=== PATIENT | male | born 1990 | race Caucasian/White ===

== ENCOUNTER 2017-02-14 16:48 | Emergency (ER) | payer OTHER ==
--- NOTE | 2017-02-14 19:25 | ED CLINICAL REPORT ---
Clinical Report - Physicians/Mid Levels [facility] [address] [place] [address] 02/14/2017 16:49 Patient: RICARDO ALVES Time Seen: 17:11; initial patient contact. Arrived- By private vehicle. Historian- patient. HISTORY OF PRESENT ILLNESS Chief Complaint: Injury to right thigh. The injury happened about 3 days ago. Occurred at home. Injury secondary to other mechansim (none). Patient is experiencing mild pain. Patient denies injury to the head or neck. REVIEW OF SYSTEMS The patient has had swelling. He has had pedal edema but no pain on weight bearing. No weakness, skin laceration, calf pain, chest pain or difficulty breathing. No palpitations. PAST HISTORY ( Seizure Disorder. Back Injury. Back Pain. Edema. Contusion. Obesity. Tetanus Status. Sprain. Hypertension. ADDITIONAL SURGERIES: Leg surgery right from fracture). SOCIAL HISTORY Current every day smoker. Occasional alcohol use. ADDITIONAL NOTES The nursing notes have been reviewed. PHYSICAL EXAM Vital Signs: 02/14/2017 17:19 BP: 120/65. HR: 56. RR: 14. O2 saturation: 100%. Temp: 98.1 F. Pain level now: 09/13. Have been reviewed. Blood pressure normal. Bradycardic. Respiratory rate normal. Temperature normal. Oxygen saturation normal. Appearance: Alert. Oriented X3. No acute distress. CVS: Normal heart rate and rhythm. Heart sounds normal. Respiratory: No respiratory distress. Breath sounds normal. Extremities: Left leg. (Superficial thrombophlebitis to medial calf 3 cm. Mild overlying erythema.). Extremities otherwise negative. Neuro, Vascular and Tendons: Vascular status intact. Sensation intact. Motor intact. Tendon function intact. Gait: Normal gait. PROGRESS AND PROCEDURES Disposition: Discharged home in good condition. Condition: good. CLINICAL IMPRESSION Superficial thrombophlebitis of the right leg. INSTRUCTIONS Your Current Medications: CONTINUE TAKING THE FOLLOWING MEDICATIONS: Keppra Oral : 1750 mg 2x a day. New Seizure Pill (starts with Z)*. Prescription Medications: Diclofenac 50 mg tablets: take 1 tablet orally every 8 hours as needed for pain. Dispense thirty (30). No refill. Follow-up: Follow up with your doctor in about two days. Call for an appointment. (Electronically signed by Pillo Cronin Dr. 02/16/2017 21:49)
--- NOTE | 2017-02-14 19:25 | ED NURSING NOTES ---
Clinical Report - Nurses [facility] [address] [place] [address] 02/14/2017 16:49 Patient: RICARDO ALVES TRIAGE Triage time 17:19. Acuity: LEVEL 3. Chief Complaint: RIGHT LOWER EXTREMITY PAIN, SWELLING and REDNESS. SEPSIS SCREEN: Sepsis Screen. Negative (no infection suspected/documented). --17:31 Denise Pickett R.N. 17:19 02/14/17. BP: 120/65. HR: 56. RR: 14. O2 saturation: 100%. Temp: 98.1 F (oral). Pain level now: 09/13. --17:31 Denise Pickett R.N. Weight: 129.2 kg stated. Height/Length: 73 inches Per Patient. BMI: 37.6. --17:26 Denise Pickett R.N. Medications Keppra Oral 1750 mg , 2x a day. --17:23 Denise Pickett R.N. New Seizure Pill (starts with Z). --17:23 Denise Pickett R.N. Allergies No Known Drug Allergy. --17:23 Denise Pickett R.N. History Arrived by private vehicle. Historian: patient. Accompanied by friend. Primary physician (Gayla Tellez ([facility])). This occurred (about 3 days ago). ( Noticed redness and a rock hard area on his right calf. Called Dr office and they referred him to the ED. Went to in [place] a couple of months ago for vein mapping, needs to call to make an appt for vein stripping.). He has had swelling and redness. 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 SOCIAL HX: Heavy tobacco smoker- 1 pack per day. Occasional alcohol use. No drug use. SELF HARM ASSESSMENT: A self harm assessment was performed. The patient answered "no" to the question "Do you have thoughts of harming or killing yourself?". FALL RISK ASSESSMENT: Fall risk assessment completed. No fall risk identified. NUTRITIONAL RISK ASSESSMENT: The nutritional risk assessment revealed no deficiencies. FUNCTIONAL ASSESSMENT: Functional assessment: no impairments noted. LEARNING NEEDS ASSESSMENT: The learning needs assessment revealed no barriers. ABUSE ASSESSMENT: Abuse assessment: ("yes") The patient was asked "Do you feel safe in your home?". SKIN INTEGRITY ASSESSMENT: Skin integrity risk assessment completed. No skin integrity risk identified. --17:31 Denise Pickett R.N. PROBLEMS: Seizure Disorder. Back Injury. Back Pain. Edema. Contusion. Obesity. Tetanus Status. Sprain. Hypertension. --17:25 Denise Pickett R.N. ADDITIONAL SURGERIES: Leg surgery right from fracture. --17:23 Denise Pickett R.N. Interventions ID band on patient. To room. --17:31 Denise Pickett R.N. PHYSICAL ASSESSMENT Ambulatory to room. Patient gowned. GENERAL / NEURO / PSYCH: Oriented X 4. Alert. Appears in no acute distress. EXTREMITIES: Extremity pulses are within normal limits. Right leg: tenderness and erythema. SKIN: Skin intact. Skin is warm and dry. --17:32 Denise Pickett R.N. NURSING PROGRESS NOTES Patient gowned. Reassurance given. Two patient identifiers checked. Call light placed in reach. Bed placed in lowest position. Brakes of bed on. Patient ready for evaluation- ED physician and BARN WORKER notified. --17:32 Denise Pickett R.N. 17:56 02/14/2017 Site #1 started via IV in the right antecubital space with an 20g angiocath; one attempt. Blood drawn: rainbow set. Labeled in the presence of the patient and sent to the lab. Saline lock flushed with 10 mL saline. --17:56 Denise Pickett R.N. Care transferred and report received (GAGE Murray). --19:07 Terri Fernandez R.N. 19:13 02/14/17. The patient reports no complaints and he is calm. ( Right leg red area upper medial calf with edema noted bilat). GENERAL / NEURO / PSYCH: Denies pain. Alert. Oriented X 4. RESPIRATORY: No respiratory distress. CVS: Capillary refill less than 2 seconds. GI / : Denies nausea. Denies vomiting. EXTREMITIES: Neuro-vascular status intact to the extremities. SKIN: Skin is warm and dry. ( Patient offered a warm blanket, he declined). --19:13 Terri Fernandez R.N. 19:11 02/14/17. BP: 118/67 (large adult cuff) taken on the left arm, while sitting. HR: 127. RR: 18 (regular). O2 saturation: 100% on room air. Temp: 97.8 F (oral). Pain level now: 0/10. --19:13 Terri Fernandez R.N. DISPOSITION / DISCHARGE 19:43 02/14/2017 Site #1 removed upon discharge. Bandaid applied. --19:48 Terri Fernandez R.N. Departure time: 19:47 Feb 14 2017. Condition at departure: unchanged. No learning barriers present. Discharge instructions provided and reviewed with the patient. Reviewed medication(s) side effects, precautions, dosing and course information. Prescription(s) given to the patient. Patient verbalized understanding. Written instructions provided in Japanese. The patient was discharged by the physician. He was discharged home. He left the Emergency Department ambulatory and via private vehicle. Patient driving. --19:48 Terri Fernandez R.N. 19:47 02/14/17. BP: 123/73 (large adult cuff) taken on the left arm, while sitting. HR: 80. RR: 18 (regular). O2 saturation: 100% on room air. Temp: 98 F (oral). Pain level now: 0/10. --19:48 Terri Fernandez R.N. Locked/Released at 02/14/2017 19:49 by Terri Fernandez R.N.
--- NOTE | 2017-02-14 19:25 | ED NURSING NOTES ---
Clinical Report - Nurses [facility] [address] [place] [address] 02/14/2017 16:49 Patient: RICARDO ALVES TRIAGE Triage time 17:19. Acuity: LEVEL 3. Chief Complaint: RIGHT LOWER EXTREMITY PAIN, SWELLING and REDNESS. SEPSIS SCREEN: Sepsis Screen. Negative (no infection suspected/documented). --17:31 Denise Pickett R.N. 17:19 02/14/17. BP: 120/65. HR: 56. RR: 14. O2 saturation: 100%. Temp: 98.1 F (oral). Pain level now: 09/13. --17:31 Denise Pickett R.N. Weight: 129.2 kg stated. Height/Length: 73 inches Per Patient. BMI: 37.6. --17:26 Denise Pickett R.N. Medications Keppra Oral 1750 mg , 2x a day. --17:23 Denise Pickett R.N. New Seizure Pill (starts with Z). --17:23 Denise Pickett R.N. Allergies No Known Drug Allergy. --17:23 Denise Pickett R.N. History Arrived by private vehicle. Historian: patient. Accompanied by friend. Primary physician (Gayla Tellez ([facility])). This occurred (about 3 days ago). ( Noticed redness and a rock hard area on his right calf. Called Dr office and they referred him to the ED. Went to in [place] a couple of months ago for vein mapping, needs to call to make an appt for vein stripping.). He has had swelling and redness. 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 SOCIAL HX: Heavy tobacco smoker- 1 pack per day. Occasional alcohol use. No drug use. SELF HARM ASSESSMENT: A self harm assessment was performed. The patient answered "no" to the question "Do you have thoughts of harming or killing yourself?". FALL RISK ASSESSMENT: Fall risk assessment completed. No fall risk identified. NUTRITIONAL RISK ASSESSMENT: The nutritional risk assessment revealed no deficiencies. FUNCTIONAL ASSESSMENT: Functional assessment: no impairments noted. LEARNING NEEDS ASSESSMENT: The learning needs assessment revealed no barriers. ABUSE ASSESSMENT: Abuse assessment: ("yes") The patient was asked "Do you feel safe in your home?". SKIN INTEGRITY ASSESSMENT: Skin integrity risk assessment completed. No skin integrity risk identified. --17:31 Denise Pickett R.N. PROBLEMS: Seizure Disorder. Back Injury. Back Pain. Edema. Contusion. Obesity. Tetanus Status. Sprain. Hypertension. --17:25 Denise Pickett R.N. ADDITIONAL SURGERIES: Leg surgery right from fracture. --17:23 Denise Pickett R.N. Interventions ID band on patient. To room. --17:31 Denise Pickett R.N. PHYSICAL ASSESSMENT Ambulatory to room. Patient gowned. GENERAL / NEURO / PSYCH: Oriented X 4. Alert. Appears in no acute distress. EXTREMITIES: Extremity pulses are within normal limits. Right leg: tenderness and erythema. SKIN: Skin intact. Skin is warm and dry. --17:32 Denise Pickett R.N. NURSING PROGRESS NOTES Patient gowned. Reassurance given. Two patient identifiers checked. Call light placed in reach. Bed placed in lowest position. Brakes of bed on. Patient ready for evaluation- ED physician and DOUBLE END TENONER SETTER notified. --17:32 Denise Pickett R.N. 17:56 02/14/2017 Site #1 started via IV in the right antecubital space with an 20g angiocath; one attempt. Blood drawn: rainbow set. Labeled in the presence of the patient and sent to the lab. Saline lock flushed with 10 mL saline. --17:56 Denise Pickett R.N. Care transferred and report received (GAGE Murray). --19:07 Terri Fernandez R.N. 19:13 02/14/17. The patient reports no complaints and he is calm. ( Right leg red area upper medial calf with edema noted bilat). GENERAL / NEURO / PSYCH: Denies pain. Alert. Oriented X 4. RESPIRATORY: No respiratory distress. CVS: Capillary refill less than 2 seconds. GI / : Denies nausea. Denies vomiting. EXTREMITIES: Neuro-vascular status intact to the extremities. SKIN: Skin is warm and dry. ( Patient offered a warm blanket, he declined). --19:13 Terri Fernandez R.N. 19:11 02/14/17. BP: 118/67 (large adult cuff) taken on the left arm, while sitting. HR: 127. RR: 18 (regular). O2 saturation: 100% on room air. Temp: 97.8 F (oral). Pain level now: 0/10. --19:13 Terri Fernandez R.N. DISPOSITION / DISCHARGE 19:43 02/14/2017 Site #1 removed upon discharge. Bandaid applied. --19:48 Terri Fernandez R.N. Departure time: 19:47 Feb 14 2017. Condition at departure: unchanged. No learning barriers present. Discharge instructions provided and reviewed with the patient. Reviewed medication(s) side effects, precautions, dosing and course information. Prescription(s) given to the patient. Patient verbalized understanding. Written instructions provided in [place]. The patient was discharged by the physician. He was discharged home. He left the Emergency Department ambulatory and via private vehicle. Patient driving. --19:48 Terri Fernandez R.N. 19:47 02/14/17. BP: 123/73 (large adult cuff) taken on the left arm, while sitting. HR: 80. RR: 18 (regular). O2 saturation: 100% on room air. Temp: 98 F (oral). Pain level now: 0/10. --19:48 Terri Fernandez R.N. Locked/Released at 02/14/2017 19:49 by Terri Fernandez R.N.
--- NOTE | 2017-02-14 19:25 | ED CLINICAL REPORT ---
Clinical Report - Physicians/Mid Levels [facility] [address] [place] [address] 02/14/2017 16:49 Patient: RICARDO ALVES Time Seen: 17:11; initial patient contact. Arrived- By private vehicle. Historian- patient. HISTORY OF PRESENT ILLNESS Chief Complaint: Injury to right thigh. The injury happened about 3 days ago. Occurred at home. Injury secondary to other mechansim (none). Patient is experiencing mild pain. Patient denies injury to the head or neck. REVIEW OF SYSTEMS The patient has had swelling. He has had pedal edema but no pain on weight bearing. No weakness, skin laceration, calf pain, chest pain or difficulty breathing. No palpitations. PAST HISTORY ( Seizure Disorder. Back Injury. Back Pain. Edema. Contusion. Obesity. Tetanus Status. Sprain. Hypertension. ADDITIONAL SURGERIES: Leg surgery right from fracture). SOCIAL HISTORY Current every day smoker. Occasional alcohol use. ADDITIONAL NOTES The nursing notes have been reviewed. PHYSICAL EXAM Vital Signs: 02/14/2017 17:19 BP: 120/65. HR: 56. RR: 14. O2 saturation: 100%. Temp: 98.1 F. Pain level now: 09/13. Have been reviewed. Blood pressure normal. Bradycardic. Respiratory rate normal. Temperature normal. Oxygen saturation normal. Appearance: Alert. Oriented X3. No acute distress. CVS: Normal heart rate and rhythm. Heart sounds normal. Respiratory: No respiratory distress. Breath sounds normal. Extremities: Left leg. (Superficial thrombophlebitis to medial calf 3 cm. Mild overlying erythema.). Extremities otherwise negative. Neuro, Vascular and Tendons: Vascular status intact. Sensation intact. Motor intact. Tendon function intact. Gait: Normal gait. PROGRESS AND PROCEDURES Disposition: Discharged home in good condition. Condition: good. CLINICAL IMPRESSION Superficial thrombophlebitis of the right leg. INSTRUCTIONS Your Current Medications: CONTINUE TAKING THE FOLLOWING MEDICATIONS: Keppra Oral : 1750 mg 2x a day. New Seizure Pill (starts with Z)*. Prescription Medications: Diclofenac 50 mg tablets: take 1 tablet orally every 8 hours as needed for pain. Dispense thirty (30). No refill. Follow-up: Follow up with your doctor in about two days. Call for an appointment. (Electronically signed by Pillo Cronin Dr. 02/16/2017 21:49)
--- NOTE | 2017-02-14 19:26 | ED ORDER SUMMARY ---
..... Patient: RICARDO ALVES OrderSheet [facility] VisitID: [id number] [place] [address] 26y, M Registration Date/Time: 02/14/2017 ORDER SHEET Weight: 129.2 kg (stated) Allergies: No Known Drug Allergy GENERAL ORDERS: CBC w Diff Urgent (17:44 02/14/2017 Wan Carney) (Ack 17:47 LNations ER Tech1) (19:07 Da R.N.) CMP Urgent (17:44 02/14/2017 Wan Carney) (Ack 17:47 LNations ER Tech1) (19:07 Da R.N.) D-Dimer Urgent (17:44 02/14/2017 Wan Carney) (Ack 17:47 LNations ER Tech1) (19:07 Da R.N.) MEDICATION ORDERS: IV FLUIDS: IV Saline Lock (17:44 02/14/2017 Wan Carney) (17:57 NIGELest R.N.) ORDER SHEET NOTES: [Electronically signed by Terri Fernandez R.N. (19:49 02/14/2017)] [Electronically signed by Pillo Cronin Dr. (21:49 02/16/2017)] [Electronically locked/signed by Terri Fernandez R.N. (19:49 02/14/2017)]
--- NOTE | 2017-02-14 19:26 | ED ORDER SUMMARY ---
..... Patient: RICARDO ALVES OrderSheet [facility] VisitID: [id number] [place] [address] 26y, M Registration Date/Time: 02/14/2017 ORDER SHEET Weight: 129.2 kg (stated) Allergies: No Known Drug Allergy GENERAL ORDERS: CBC w Diff Urgent (17:44 02/14/2017 Wan Carney) (Ack 17:47 LNations ER Tech1) (19:07 Da R.N.) CMP Urgent (17:44 02/14/2017 Wan Carney) (Ack 17:47 LNations ER Tech1) (19:07 Da R.N.) D-Dimer Urgent (17:44 02/14/2017 Wan Carney) (Ack 17:47 LNations ER Tech1) (19:07 Da R.N.) MEDICATION ORDERS: IV FLUIDS: IV Saline Lock (17:44 02/14/2017 Wan Carney) (17:57 NIGELest R.N.) ORDER SHEET NOTES: [Electronically signed by Terri Fernandez R.N. (19:49 02/14/2017)] [Electronically signed by Pillo Cronin Dr. (21:49 02/16/2017)] [Electronically locked/signed by Terri Fernandez R.N. (19:49 02/14/2017)]
--- NOTE | 2017-02-16 21:49 | ED DISCHARGE INSTRUCTIONS ---
Patient: RICARDO ALVES General Instructions [facility] VisitID: [id number] [place] [address] 26y, M Registration Date/Time: 02/14/2017 Superficial thrombophlebitis of the right leg. INSTRUCTIONS Your Current Medications: CONTINUE TAKING THE FOLLOWING MEDICATIONS: Keppra Oral : 1750 mg 2x a day. New Seizure Pill (starts with Z)*. Prescription Medications: Diclofenac 50 mg tablets: take 1 tablet orally every 8 hours as needed for pain. Dispense thirty (30). No refill. Follow-up: Follow up with your doctor in about two days. Call for an appointment. ADDITIONAL INFORMATION Phlebitis, Superficial Phlebitis is the name for inflammation of a vein. This results in local redness, swelling, warmth and pain. This may occur after medicine has been given by vein as a result of the irritating effect of the medicine. It can also occur as a result of IV drug use. Superficial phlebitis involves only those veins close to the surface. There is no danger of a clot traveling to the lung or brain, unlike deep blood clots of the legs. Therefore, this condition can be safely treated at home. Home Care: Heat is helpful. Use a heating pad or soak the inflamed part in a hot tub for 10 minutes at a time. You may use ibuprofen (Motrin, Advil) to control pain, unless another medicine was prescribed. [ NOTE : If you have chronic kidney disease or ever had a stomach ulcer or GI bleeding, talk with your doctor before using these medicines.] If Your Leg Is Affected: Unless pain is severe, you may walk. It is important to sit often and elevate the leg. Avoid prolonged sitting or standing. Use support hose or an elastic wrap to compress the leg and reduce swelling. If Your Arm Is Affected: Elevate the arm. If you were given a sling, take your arm out from time to time and move it around to increase the circulation. Use an elastic wrap if there is a lot of swelling. Follow Up with your doctor as advised. Get Prompt Medical Attention if any of the following occur: Shortness of breath or painful breathing Chest pain or cough Fever of 100.4F (38C) or higher, or as directed by your healthcare provider Increasing swelling or pain Spreading redness You have been given the following additional information: Thrombophlebitis, Superficial (Electronically signed by Pillo Cronin Dr. 02/16/2017 21:49)
--- NOTE | 2017-02-16 21:49 | ED MED RECONCILIATION SUMMARY ---
Patient: RICARDO ALVES Medication Reconciliation Report [facility] VisitID: [id number] [address] [place] [address] 26y, M Registration Date/Time: 02/14/2017 Weight: 129.2 kg Height/Length: 73 in. BMI: 37.6 ALLERGIES: No Known Drug Allergy The patient's Home Medications are listed below: CONTINUE TAKING THE FOLLOWING MEDICATIONS: Keppra Oral 1750 mg , 2x a day New Seizure Pill (starts with Z) The source(s) of the original Home Medication information: Not obtained. The following Medications were given to the patient in the Emergency Department: None. The following Medications were prescribed to the patient: Diclofenac 50 mg tablets: take 1 tablet orally every 8 hours as needed for pain. Dispense thirty (30). No refill. -- Pillo Cronin Dr.
--- NOTE | 2017-02-16 21:49 | ED MED RECONCILIATION SUMMARY ---
Patient: RICARDO ALVES Medication Reconciliation Report [facility] VisitID: [id number] [address] [place] [address] 26y, M Registration Date/Time: 02/14/2017 Weight: 129.2 kg Height/Length: 73 in. BMI: 37.6 ALLERGIES: No Known Drug Allergy The patient's Home Medications are listed below: CONTINUE TAKING THE FOLLOWING MEDICATIONS: Keppra Oral 1750 mg , 2x a day New Seizure Pill (starts with Z) The source(s) of the original Home Medication information: Not obtained. The following Medications were given to the patient in the Emergency Department: None. The following Medications were prescribed to the patient: Diclofenac 50 mg tablets: take 1 tablet orally every 8 hours as needed for pain. Dispense thirty (30). No refill. -- Pillo Cronin Dr.
--- NOTE | 2017-02-16 21:49 | ED MAR SUMMARY ---
..... Medication Administration Record [facility] [address] [place], [place] [id number] Patient: RICARDO ALVES Visit ID: [id number] 26y, M Weight: 129.2 kg Height/Length: 73 in BMI: 37.6 ALLERGIES: No Known Drug Allergy
--- NOTE | 2017-02-16 21:49 | ED MAR SUMMARY ---
..... Medication Administration Record [facility] [address] [place], [place] [id number] Patient: RICARDO ALVES Visit ID: [id number] 26y, M Weight: 129.2 kg Height/Length: 73 in BMI: 37.6 ALLERGIES: No Known Drug Allergy
== END 2017-02-14 19:47 | disposition home or self-care (01) ==
LOC: ED SRH 16:48
DX: I80.01 Phlebitis and thrombophlebitis of superficial vessels of right lower extremity (principal); G40.909 Epilepsy, unspecified, not intractable, without status epilepticus; I10 Essential (primary) hypertension; Z79.899 Other long term (current) drug therapy; F17.210 Nicotine dependence, cigarettes, uncomplicated
CPT/HCPCS: 90100; 91556; 95059